=== PATIENT | female | born 1995 | race Caucasian/White ===

== ENCOUNTER 2016-09-16 15:44 | Emergency (ER) | payer OTHER ==
[~2016-09-16] VITALS: Ht 160 cm; Wt 95.0 kg
[2016-09-16 15:54] VITALS: BP 121/86; PULSE 87; RESP 16; O2SAT 97
--- NOTE | 2016-09-16 16:27 | ED.REPORT ---
HPI-Eye Problem Date of Service Sep 16, 2016 ED Provider: Osvaldo Mcbride MD Pt is a 21 year old female with a history of anxiety, PCOS and fibromyalgia who presents to the ED c/o left pupil dilation onset this morning. She states that she woke up this morning and her left pupil was "completely black". Additional symptoms include blurry vision in both eyes, malaise, diffuse body aches, and a headache in "back of her head". Denies photophobia, dry eyes, rash, nausea, vomiting, back chest or abdominal pain, or a cough. She rates the severity as 10 /10 . She reports that her father has sudden onset optical neuropathy. She had an episode of fibromyalgia two days ago. She takes citalopram and metformin for anxiety. Pt denies taking any nausea medications. Nursing Notes Stated Complaint: PUPIL SIZE UNEVEN Chief Complaint: Eye Nursing Notes Reviewed: Yes Allergies: Coded Allergies: No Known Allergies (Unverified , 09/16/16) General Time Seen by MD: 16:27 Chief Complaint Left eye affected Hx Obtained From: Patient Arrived By: Walk-in Sudden in Onset?: Yes Onset Occurred: 5 - 8 hours ago Severity: Current: Pain level 10 out of 10 Severity: Maximum: Pain level 10 out of 10 Recent Healthcare: No recent doctor visit Similar Sx Previous: No Past Medical History Past Medical History Anxiety Fibromyalgia PCOS Family History Father has optical neuropathy Social History Alcohol Use: "Social" Ambulatory Status Independent Review of Systems No dry eyes Eyes: Reports: Blurred bilateral, Visual loss bilateral, Denies: Photophobia Skin: Denies Rash Neurologic: Reports: Headache Complete sys rev & neg: except as marked. Respiratory: Denies: Non-productive cough, Prod cough, clear Cardiovascular: Denies: Chest pain GI: Denies: Abdominal pain, Nausea, Vomiting Musculoskeletal: Denies: Back pain Physical Exam Initial Vital Signs Vital Signs (First) Date Time Temp Pulse Resp B/P Pulse Ox O2 Delivery O2 Flow Rate FiO2 09/16/16 15:54 37.3 87 16 121/86 97 Room Air Initial VS: Reviewed, Vital signs normal Neck: Supple, Full range of motion Respiratory: Breath sounds normal, Clear to auscultation, No respiratory distress Cardiovascular: Regular rate & rhythm, Heart sounds normal, Intact distal pulses Skin: Warm, Dry, No cyanosis Neurologic: Alert, Oriented, Nonfocal Psychiatric: Mood/affect normal, Behavior normal, Normal thought content Head / Eyes: Atraumatic, EOMI Right pupil 5mm. Left pupil 7 mm. Reactive to light bilaterally. Normal conjunctiva, no erythema Normal anterior chamber bilaterally 20/20 vision bilaterally Full visual field No ptosis General/Constitutional: Awake, Alert, Cooperative, Not toxic appearing ENT: Atraumatic, Airway patent Interpretation & Diagnostics Head CT no contrast: IMPRESSION: No CT evidence of acute intracranial pathology. Dictated by: Timbo Barahona M.D. on 09/16/2016 at 16:57 Approved by: Timbo Barahona M.D. on 09/16/2016 at 16:59 Re-Eval/Medical Decision Med Decision/Clinical Course 21-year-old female with anisocoria presenting for evaluation. She has no ptosis , anhidrosis, and extraocular muscles are intact. Her vision is 20/[address] is negative. She has no signs of Andrea syndrome or third nerve palsy. I cannot identify any medications that she may have taken to cause and atropine-like effect such as cold medicines/phenylephrine/ scopolamine. Her symptoms appear to be improved somewhat during her stay here. She does not have any history of vascular migraines. Discussed with Dr. Davila in ophthalmology who was reassured by her presentation and nml CT and has provided the discharge instructions below. These were conveyed to the patient as well as Dr. Davila's phone number and pt understands and agrees with the plan. Source of Hx: Old records Re-Evaluation/Progress #1: Time of Eval: 18:10 Patient Status: Condition improved Re-Evaluation/Progress Note: Pt rechecked. Discussed all lab results. Left pupil went from 7mm to 6mm. Re-Evaluation/Progress #2: Time of Eval: 18:40 Patient Status: Condition improved Re-Evaluation/Progress Note: Patient rechecked. Discussed plan for discharge. Patient understands and agrees with plan. F/U instructions and RTER warnings given. All questions addressed at this time. Consultation : Referral / Consult Name: Edith Davila MD Consulted With: [facility] Director Call Returned at: 18:15 Census Clerk: Agrees with eval, Agrees with plan Note: Consulted with opthalmologist, Dr. Davila, about pt's case. Counseled Regarding: Diagnosis, Lab results, Need for follow-up, When/why to return to ED Discharge & Departure Primary Impression: Anisocoria Additional Impression: Headache Headache type: unspecified Headache chronicity pattern: acute headache Intractability: not intractable Qualified Code: R51 - Headache Disposition: Home Discharge Condition All VS Reviewed: Yes Condition: Stable Patient Instructions: Acute Headache (ED) Additional Instructions: Thank you for entrusting us with your care today. Your head CT today returned normal. The cause of your unequal pupils is likely physiologic. I counseled with Dr. aDvila in ophthalmology and she recommends that you return if you develop any dizziness, slurred speech, numbness or tingling, or vision changes. If you are no better in 24 hours you need to call her at [phone]. I would also recommend that he follow up with her next week.. EDSupervising Provider for [facility]: Edith Davila MD Scribe Attestation Portions of this note were transcribed by Renay Berrios and Karina Spears. I, Dr. Mcbride, personally performed the history, physical exam and medical decision-making; I reviewed and confirmed the accuracy of the information in the transcribed note. copies to: Edith Davila MD, Gary R DO Sep 16, 2016 16:27 Renay Berrios Sep 16, 2016 16:39 KARINA SPEARS Sep 16, 2016 17:14
--- NOTE | 2016-09-16 17:01 | DRSVH ---
PROCEDURE: CT BRAIN WITHOUT CONTRAST ([id number]) INDICATIONS: headache, uneven pupils, blurred vision TECHNIQUE: Noncontrast 4.5 mm thick angled axial sections acquired from the foramen magnum to the vertex, with c oronal reformats. COMPARISON: None. FINDINGS: Image quality: Excellent. CSF spaces: Basal cisterns are patent. No extra-axial fluid collections. Ventricles are normal in size and shape. Brain: No midline shift. No intracranial masses or hemorrhage. Jackman-white matter interface is norm al. Skull and face: Calvarium and visualized facial bones are intact, without suspicious lesions. Sinuses: Visualized sinuses and mastoids are clear. IMPRESSION: No CT evidence of acute intracranial pathology. Dictated by: Timbo Barahona M.D. on 09/16/2016 at 16:57 Approved by: Timbo Barahona M.D. on 09/16/2016 at 16:59
[2016-09-16 17:19] VITALS: BP 117/61; PULSE 81; O2SAT 97
[2016-09-16 18:46] VITALS: BP 120/62; PULSE 83; O2SAT 99
[2016-09-16 19:13] VITALS: BP 120/62; PULSE 83; RESP 16; O2SAT 99
== END 2016-09-16 19:14 | disposition home or self-care (01) ==
LOC: SED 15:44
DX: H57.02 Anisocoria (principal); R51 Headache; F41.9 Anxiety disorder, unspecified